=== PATIENT | female | born 1990 | race Caucasian/White ===

== ENCOUNTER 2017-07-21 00:01 | Emergency (ER) | payer MEDICAID, OTHER ==
[~2017-07-21] VITALS: Ht 154.9 cm; Wt 69.3 kg
[2017-07-21] MEDS ORDERED: ONDANSETRON HCL 4MG TABLET PO ONE (04:45)
[2017-07-21] MEDS ORDERED: KETOROLAC 30MG/ML VIAL IM ONE (04:45)
[2017-07-21] MEDS ORDERED: LIDOCAINE HCL 1% 20ML VIAL (Pyxis) INJ INFIL ONE (05:15)
[2017-07-21] MEDS ORDERED: CEFTRIAXONE SODIUM 1 G/VIAL IM ONE (05:15)
[2017-07-21] MEDS ORDERED: LIDOCAINE HCL 1%/EPI 1:200,000 30 ML VIAL MC ONE (05:15)
[2017-07-21] MEDS ORDERED: BACITRACIN ZINC OINT UDPKT TOP ONE (05:15)
[2017-07-21] MEDS ORDERED: TETANUS, DIPHTHERIA, PERTUSSIS VAC/PF 0.5ML (>7YR OLD) IM ONE (05:15)
[2017-07-21 07:30] VITALS: BP 132/80
== END 2017-07-21 07:42 | disposition home or self-care (01) ==
LOC: ER 00:01
DX: L02.01 Cutaneous abscess of face (principal); L03.211 Cellulitis of face; I10 Essential (primary) hypertension; F15.10 Other stimulant abuse, uncomplicated
CPT/HCPCS: 10061; 81025; 90471; 90715; 96372; 99284; J0696; J1885; J3490; Q0162; Z7610

== ENCOUNTER 2019-11-24 06:22 | Emergency (ER) | payer MEDICAID ==
[~2019-11-24] VITALS: Ht 157.5 cm; Wt 64.8 kg
[2019-11-24 06:51] VITALS: BP 125/87
== END 2019-11-24 07:41 | disposition left against medical advice (07) ==
LOC: ER 06:53
DX: Z53.21 Procedure and treatment not carried out due to patient leaving prior to being seen by health care provider (principal)

== ENCOUNTER 2020-08-08 01:29 | Emergency (ER) | payer MEDICAID ==
[~2020-08-08] VITALS: Ht 165.1 cm; Wt 77.0 kg
[2020-08-08 01:31] VITALS: BP 136/90
== END 2020-08-08 01:52 | disposition left against medical advice (07) ==
LOC: ER 01:29
DX: R10.9 Unspecified abdominal pain (principal); R11.2 Nausea with vomiting, unspecified; R68.89 Other general symptoms and signs; Z53.21 Procedure and treatment not carried out due to patient leaving prior to being seen by health care provider
CPT/HCPCS: 99283

== ENCOUNTER 2022-05-14 11:33 | Emergency (ER) | payer MEDICAID ==
[~2022-05-14] VITALS: Ht 165.1 cm; Wt 70.0 kg
[~2022-05-14 11:33] MED LIST: L25 MT; LEVO500T90 MT; THIA100T72 PO
[2022-05-14 11:39] VITALS: BP 118/82
[2022-05-14] MEDS ORDERED: IBUPROFEN 600MG TABLET PO ONE (12:15)
== END 2022-05-14 13:46 | disposition left against medical advice (07) ==
LOC: ER 11:36
DX: S09.8XXA Other specified injuries of head, initial encounter (principal); Y08.89XA Assault by other specified means, initial encounter; Y93.89 Activity, other specified; Y92.89 Other specified places as the place of occurrence of the external cause; Y99.8 Other external cause status; F10.229 Alcohol dependence with intoxication, unspecified; D64.9 Anemia, unspecified; F41.9 Anxiety disorder, unspecified; I10 Essential (primary) hypertension; Z87.19 Personal history of other diseases of the digestive system
CPT/HCPCS: 99281

== ENCOUNTER 2022-05-23 18:28 | Inpatient (IN) | payer MEDICAID, OTHER ==
[~2022-05-23] VITALS: Ht 154.9 cm; Wt 61.7 kg
[2022-05-23] MEDS ORDERED: ACETAMINOPHEN 325MG TABLET PO ONE (19:15)
[2022-05-23] MEDS ORDERED: KETOROLAC 30MG/ML VIAL IM ONE (20:45)
[2022-05-23 20:58] LABS: BASOPHILS % 1.5 % (0.0-2.0); EOSINOPHILS % 1.3 % (0.0-5.0); HEMATOCRIT. 32.4 % (36.0-48.0); HEMOGLOBIN. 11.4 g/dL (12.0-16.0); LYMPHOCYTES % 19.6 % (20.0-50.0); MEAN CORPUSCULAR HEMOGLOBIN 34.6 pg (28.0-32.0); MEAN CORPUSCULAR VOLUME 98.1 fL (81.0-99.0); MEAN PLATELET VOLUME 7.6 fl (7.4-10.4); MONOCYTES % 12.1 % (2.0-8.0); NEUTROPHILS % 65.5 % (40.0-76.0); PLATELET 102 x1000/uL (130-400); RED CELL DISTRIBUTION WIDTH 13.8 % (11.6-14.6)
[2022-05-23 21:14] LABS: CHLORIDE 103 mEq/L (98-107)
[2022-05-23 21:15] LABS: HCG SCREEN NEGATIVE
[2022-05-24] MEDS ORDERED: SODIUM CHLORIDE 0.9% 1,000 ML IV ONE (01:00)
[2022-05-24] MEDS: [UNRECOGNIZED DRUG - OTHER] IV SCH ×3 (03:22→21:10)
[2022-05-24 03:40] VITALS: BP 117/79
[2022-05-24] MEDS ORDERED: POTASSIUM CHLORIDE 20MEQ TABLET SR PO NR ×2 (04:30→10:30)
[2022-05-24] MEDS ORDERED: HYDROCODONE/ACETAMINOPHEN 10/325MG TABLET PO PRN (04:30)
[2022-05-24] MEDS: HYDROCODONE/ACETAMINOPHEN 10/325MG TABLET PO PRN ×2 (05:17→09:42)
[2022-05-24 08:00] VITALS: BP 128/68
[2022-05-24 09:36] LABS: BASOPHILS % 1.7 % (0.0-2.0); EOSINOPHILS % 1.8 % (0.0-5.0); LYMPHOCYTES % 12.2 % (20.0-50.0); MEAN CORPUSCULAR HEMOGLOBIN 34.9 pg (28.0-32.0); MEAN CORPUSCULAR VOLUME 98.4 fL (81.0-99.0); MEAN PLATELET VOLUME 7.2 fl (7.4-10.4); MONOCYTES % 13.1 % (2.0-8.0); NEUTROPHILS % 71.2 % (40.0-76.0); PLATELET 79 x1000/uL (130-400); RED BLOOD CELL COUNT 3.15 mill/uL (4.2-5.4); RED CELL DISTRIBUTION WIDTH 13.9 % (11.6-14.6)
[2022-05-24 09:52] LABS: CHLORIDE 105 mEq/L (98-107)
[2022-05-24] MEDS ORDERED: POTASSIUM CHLORIDE INJ 40 MEQ in DEXT 5% WATER 250 ML IV ONE (10:30)
[2022-05-24] MEDS: LORAZEPAM 2MG/ML CPJ IV PRN ×2 (11:58→21:10)
[2022-05-24 12:00] VITALS: BP_SYST 127; BP_SYST 131; BP_DIAS 76; BP_DIAS 81
[2022-05-24] MEDS: KCL 20MEQ/100ML X 2 FOR TOTAL KCL 40MEQ/200ML IV SCH ×2 (12:00→14:00)
[2022-05-24] MEDS: CHLORDIAZEPOXIDE 25MG CAPSULE PO SCH ×2 (13:08→18:00)
[2022-05-24] MEDS ORDERED: MAGNESIUM 4 G PREMIX 100 ML IV SCH (14:00)
[2022-05-24] MEDS ORDERED: ONDANSETRON HCL 4MG/2ML INJ IV PRN (14:45)
[2022-05-24 16:00] VITALS: BP 119/75
[2022-05-24] MEDS: DEXT 5%/0.45% NACL KCL 20MEQ/L 1,000 ML IV SCH (16:49)
[2022-05-24] MEDS ORDERED: CHLORDIAZEPOXIDE 25MG CAPSULE PO SCH (18:00)
[2022-05-24 20:00] VITALS: BP 132/87
[2022-05-24] MEDS ORDERED: NALOXONE HCL 0.4MG/ML VIAL IV PRN (20:00)
[2022-05-24 23:29] LABS: CLARITY URINE CLOUDY (CLEAR); COLOR URINE ORANGE (YELLOW); KETONES URINE 1+ (NEGATIVE); LEUKOCYTE ESTERASE URINE 1+ (NEGATIVE); NITRITE URINE POSITIVE (NEGATIVE); OCCULT BLOOD URINE 3+ (NEGATIVE); PROTEIN URINE 3+ (NEGATIVE); SPECIFIC GRAVITY URINE 1.014 (1.005-1.030)
[2022-05-24 23:46] LABS: *AMPHETAMINES SCREEN URINE NEGATIVE (NEGATIVE); *BARBITURATES SCREEN URINE NEGATIVE (NEGATIVE); *BENZODIAZEPINES SCREEN URINE NEGATIVE (NEGATIVE); *COCAINE SCREEN URINE NEGATIVE (NEGATIVE); CANNABINOID URINE SCREEN NEGATIVE (NEGATIVE); METHADONE URINE SCREEN NEGATIVE (NEGATIVE); PHENCYCLIDINE URINE SCREEN NEGATIVE (NEGATIVE)
[2022-05-24 23:51] VITALS: BP 142/96
[2022-05-24 23:51] LABS: OPIATES URINE SCREEN PRESUMTIVE POSITIVE (NEGATIVE)
[2022-05-25] MEDS: DEXT 5%/0.45% NACL KCL 20MEQ/L 1,000 ML IV SCH ×3 (00:45→20:45)
[2022-05-25 04:00] VITALS: BP 129/78
[2022-05-25] MEDS: CHLORDIAZEPOXIDE 25MG CAPSULE PO SCH ×2 (05:33→17:17)
[2022-05-25 08:00] VITALS: BP 145/98
[2022-05-25 08:24] LABS: HEMATOCRIT. 32.3 % (36.0-48.0); HEMOGLOBIN. 11.4 g/dL (12.0-16.0); MEAN CORPUSCULAR HEMOGLOBIN 34.7 pg (28.0-32.0); MEAN CORPUSCULAR VOLUME 98.5 fL (81.0-99.0); MEAN PLATELET VOLUME 7.9 fl (7.4-10.4); PLATELET 80 x1000/uL (130-400); RED BLOOD CELL COUNT 3.28 mill/uL (4.2-5.4); RED CELL DISTRIBUTION WIDTH 13.7 % (11.6-14.6)
[2022-05-25 08:32] LABS: CHLORIDE 96 mEq/L (98-107)
[2022-05-25] MEDS ORDERED: POTASSIUM CHLORIDE 20MEQ TABLET SR PO NR (10:00)
[2022-05-25 10:46] LABS: PLATELET ESTIMATE DECREASED
[2022-05-25] MEDS: MAGNESIUM OXIDE 400MG TABLET PO SCH (11:45)
[2022-05-25] MEDS: CEFTRIAXONE 1,000 MG in DEXTROSE 5% WATER 50 ML IV SCH (11:51)
[2022-05-25 12:00] VITALS: BP 132/93
[2022-05-25 16:00] VITALS: BP 138/93
[2022-05-25 20:00] VITALS: BP 124/75
[2022-05-26 04:00] VITALS: BP 141/88
[2022-05-26] MEDS: DEXT 5%/0.45% NACL KCL 20MEQ/L 1,000 ML IV SCH ×2 (05:15→16:16)
[2022-05-26] MEDS: CHLORDIAZEPOXIDE 25MG CAPSULE PO SCH ×3 (05:15→21:03)
[2022-05-26 08:00] VITALS: BP 143/101
[2022-05-26] MEDS ORDERED: CHLORDIAZEPOXIDE 25MG CAPSULE PO NR (08:30)
[2022-05-26] MEDS: MAGNESIUM OXIDE 400MG TABLET PO SCH (09:11)
[2022-05-26] MEDS ORDERED: LORAZEPAM 1MG TABLET PO NR (09:15)
[2022-05-26] MEDS: CEFTRIAXONE 1,000 MG in DEXTROSE 5% WATER 50 ML IV SCH (10:11)
[2022-05-26 12:00] VITALS: BP 141/103
[2022-05-26] MEDS: LORAZEPAM 2MG/ML CPJ IV PRN ×2 (13:39→23:14)
[2022-05-26 16:00] VITALS: BP 142/102
[2022-05-26] MEDS: LACTULOSE 20G/30ML UDC PO SCH ×2 (17:20→21:03)
[2022-05-26 20:00] VITALS: BP 145/99
[2022-05-26 20:46] LABS: CHLORIDE 98 mEq/L (98-107)
[2022-05-26 22:01] LABS: HEMATOCRIT. 31.5 % (36.0-48.0); MEAN CORPUSCULAR HEMOGLOBIN 34.9 pg (28.0-32.0); MEAN CORPUSCULAR VOLUME 100.6 fL (81.0-99.0); MEAN PLATELET VOLUME 8.5 fl (7.4-10.4); PLATELET 112 x1000/uL (130-400); RED BLOOD CELL COUNT 3.14 mill/uL (4.2-5.4)
[2022-05-26 22:41] LABS: PLATELET ESTIMATE DECREASED
[2022-05-27] VITALS: BP 140/98
[2022-05-27] MEDS: DEXT 5%/0.45% NACL KCL 20MEQ/L 1,000 ML IV SCH ×2 (02:45→13:23)
[2022-05-27] MEDS ORDERED: LORAZEPAM 2MG/ML CPJ IV NR (03:00)
[2022-05-27] MEDS ORDERED: HALOPERIDOL LACTATE 5MG/ML VIAL IM PRN (03:15)
[2022-05-27 04:00] VITALS: BP 148/97
[2022-05-27] MEDS: LACTULOSE 20G/30ML UDC PO SCH ×3 (06:00→21:51)
[2022-05-27 08:00] VITALS: BP 122/84
[2022-05-27] MEDS ORDERED: POTASSIUM CHLORIDE 20MEQ TABLET SR PO NR (10:30)
[2022-05-27 12:00] VITALS: BP 115/81
[2022-05-27] MEDS: CEFTRIAXONE 1,000 MG in DEXTROSE 5% WATER 50 ML IV SCH (13:23)
[2022-05-27] MEDS: MAGNESIUM OXIDE 400MG TABLET PO SCH (14:13)
[2022-05-27] MEDS: CHLORDIAZEPOXIDE 25MG CAPSULE PO SCH ×4 (14:13→21:01)
[2022-05-27] MEDS: FOLIC ACID 1MG TABLET PO SCH (14:14)
[2022-05-27] MEDS: THIAMINE HCL 100MG TABLET PO SCH (14:14)
[2022-05-27 16:00] VITALS: BP 123/84
[2022-05-27 20:00] VITALS: BP 131/88
[2022-05-28] VITALS: BP 131/90
[2022-05-28 04:00] VITALS: BP 138/96
[2022-05-28] MEDS: LACTULOSE 20G/30ML UDC PO SCH ×3 (05:44→21:38)
[2022-05-28] MEDS: DEXT 5%/0.45% NACL KCL 20MEQ/L 1,000 ML IV SCH ×3 (05:45→18:45)
[2022-05-28 08:00] VITALS: BP 125/80
[2022-05-28] MEDS: THIAMINE HCL 100MG TABLET PO SCH (09:17)
[2022-05-28] MEDS: CHLORDIAZEPOXIDE 25MG CAPSULE PO SCH ×4 (09:17→21:38)
[2022-05-28] MEDS: MAGNESIUM OXIDE 400MG TABLET PO SCH (09:17)
[2022-05-28] MEDS: FOLIC ACID 1MG TABLET PO SCH (09:17)
[2022-05-28 09:54] LABS: BASOPHILS % 0.7 % (0.0-2.0); EOSINOPHILS % 2.6 % (0.0-5.0); HEMATOCRIT. 30.2 % (36.0-48.0); HEMOGLOBIN. 10.3 g/dL (12.0-16.0); LYMPHOCYTES % 11.5 % (20.0-50.0); MEAN CORPUSCULAR HEMOGLOBIN 35.4 pg (28.0-32.0); MEAN CORPUSCULAR VOLUME 103.7 fL (81.0-99.0); MEAN PLATELET VOLUME 8.2 fl (7.4-10.4); MONOCYTES % 14.5 % (2.0-8.0); NEUTROPHILS % 70.7 % (40.0-76.0); PLATELET 157 x1000/uL (130-400); RED BLOOD CELL COUNT 2.92 mill/uL (4.2-5.4); RED CELL DISTRIBUTION WIDTH 13.4 % (11.6-14.6)
[2022-05-28 11:08] LABS: CHLORIDE 104 mEq/L (98-107)
[2022-05-28 12:00] VITALS: BP 128/79
[2022-05-28] MEDS: CEFTRIAXONE 1,000 MG in DEXTROSE 5% WATER 50 ML IV SCH (14:25)
[2022-05-28 16:00] VITALS: BP 134/89
[2022-05-28 20:00] VITALS: BP 121/78
[2022-05-28] MEDS ORDERED: POTASSIUM CHLORIDE 20MEQ TABLET SR PO NR (20:45)
[2022-05-29] VITALS: BP 122/78
[2022-05-29 04:00] VITALS: BP 119/80
[2022-05-29] MEDS: DEXT 5%/0.45% NACL KCL 20MEQ/L 1,000 ML IV SCH ×2 (04:00→14:37)
[2022-05-29] MEDS: LACTULOSE 20G/30ML UDC PO SCH ×4 (05:12→21:25)
[2022-05-29] MEDS: LORAZEPAM 2MG/ML CPJ IV PRN (06:51)
[2022-05-29 08:00] VITALS: BP 114/73
[2022-05-29] MEDS: THIAMINE HCL 100MG TABLET PO SCH (08:16)
[2022-05-29] MEDS: MAGNESIUM OXIDE 400MG TABLET PO SCH (08:16)
[2022-05-29] MEDS: FOLIC ACID 1MG TABLET PO SCH (08:16)
[2022-05-29] MEDS: CHLORDIAZEPOXIDE 25MG CAPSULE PO SCH ×4 (08:16→20:21)
[2022-05-29] MEDS: CEFTRIAXONE 1,000 MG in DEXTROSE 5% WATER 50 ML IV SCH (10:57)
[2022-05-29 12:00] VITALS: BP 113/69
[2022-05-29 16:00] VITALS: BP 123/75
[2022-05-29 20:00] VITALS: BP 124/80
[2022-05-30] VITALS: BP 130/85
[2022-05-30] MEDS: DEXT 5%/0.45% NACL KCL 20MEQ/L 1,000 ML IV SCH ×3 (01:03→20:45)
[2022-05-30 03:58] VITALS: BP 110/74
[2022-05-30] MEDS: LACTULOSE 20G/30ML UDC PO SCH ×3 (06:33→21:19)
[2022-05-30 08:01] VITALS: BP 129/75
[2022-05-30] MEDS: CHLORDIAZEPOXIDE 25MG CAPSULE PO SCH ×4 (08:59→21:19)
[2022-05-30] MEDS: THIAMINE HCL 100MG TABLET PO SCH (09:00)
[2022-05-30] MEDS: MAGNESIUM OXIDE 400MG TABLET PO SCH (09:00)
[2022-05-30] MEDS: FOLIC ACID 1MG TABLET PO SCH (09:00)
[2022-05-30] MEDS: CEFTRIAXONE 1,000 MG in DEXTROSE 5% WATER 50 ML IV SCH (10:39)
[2022-05-30 11:49] VITALS: BP 117/76
[2022-05-30 16:00] VITALS: BP 125/73
[2022-05-30 20:00] VITALS: BP 121/70
[2022-05-30 20:10] LABS: HEMATOCRIT. 30.3 % (36.0-48.0); HEMOGLOBIN. 10.3 g/dL (12.0-16.0); MEAN CORPUSCULAR HEMOGLOBIN 34.9 pg (28.0-32.0); MEAN CORPUSCULAR VOLUME 102.7 fL (81.0-99.0); MEAN PLATELET VOLUME 7.6 fl (7.4-10.4); PLATELET 393 x1000/uL (130-400); RED BLOOD CELL COUNT 2.95 mill/uL (4.2-5.4); RED CELL DISTRIBUTION WIDTH 13.2 % (11.6-14.6)
[2022-05-30 20:26] LABS: CHLORIDE 99 mEq/L (98-107)
[2022-05-30 20:42] LABS: PLATELET ESTIMATE NORMAL
[2022-05-31 00:06] VITALS: BP 124/74
[2022-05-31 03:59] VITALS: BP 131/78
[2022-05-31] MEDS: LACTULOSE 20G/30ML UDC PO SCH ×2 (06:10→14:00)
[2022-05-31] MEDS: DEXT 5%/0.45% NACL KCL 20MEQ/L 1,000 ML IV SCH ×2 (06:11→16:45)
[2022-05-31 07:53] VITALS: BP 125/76
[2022-05-31] MEDS: THIAMINE HCL 100MG TABLET PO SCH ×2 (08:49→08:53)
[2022-05-31] MEDS: FOLIC ACID 1MG TABLET PO SCH ×2 (08:49→08:53)
[2022-05-31] MEDS: MAGNESIUM OXIDE 400MG TABLET PO SCH ×2 (08:49→08:53)
[2022-05-31] MEDS: CHLORDIAZEPOXIDE 25MG CAPSULE PO SCH ×3 (08:49→17:02)
[2022-05-31 12:03] VITALS: BP 110/55
[2022-05-31 16:00] VITALS: BP 115/68
[2022-05-31 20:00] VITALS: BP 91/59
[2022-06-01] VITALS: BP 120/67
[2022-06-01] MEDS: DEXT 5%/0.45% NACL KCL 20MEQ/L 1,000 ML IV SCH ×3 (02:38→21:02)
[2022-06-01 04:00] VITALS: BP 101/55
[2022-06-01 08:00] VITALS: BP 115/66
[2022-06-01] MEDS: LACTULOSE 20G/30ML UDC PO SCH (08:57)
[2022-06-01] MEDS: MAGNESIUM OXIDE 400MG TABLET PO SCH (08:58)
[2022-06-01] MEDS: THIAMINE HCL 100MG TABLET PO SCH (08:58)
[2022-06-01] MEDS: FOLIC ACID 1MG TABLET PO SCH (08:58)
[2022-06-01 12:00] VITALS: BP 109/51
[2022-06-01] MEDS: SERTRALINE HCL 50MG TABLET PO SCH (13:03)
[2022-06-01 16:00] VITALS: BP 102/58
[2022-06-01 20:39] VITALS: BP 105/64
[2022-06-01] MEDS ORDERED: TRAZODONE HCL 50MG TABLET PO SCH (21:00)
[2022-06-02 01:42] VITALS: BP 121/58
[2022-06-02 04:23] VITALS: BP 146/68
[2022-06-02 07:23] VITALS: BP 114/73
[2022-06-02 08:00] VITALS: BP 114/73
[2022-06-02] MEDS: FOLIC ACID 1MG TABLET PO SCH (08:10)
[2022-06-02] MEDS: SERTRALINE HCL 50MG TABLET PO SCH (08:11)
[2022-06-02] MEDS: THIAMINE HCL 100MG TABLET PO SCH (08:11)
[2022-06-02] MEDS: DEXT 5%/0.45% NACL KCL 20MEQ/L 1,000 ML IV SCH (08:11)
[2022-06-02] MEDS: MAGNESIUM OXIDE 400MG TABLET PO SCH (08:11)
[2022-06-02] MEDS: LACTULOSE 20G/30ML UDC PO SCH (08:12)
== END 2022-06-02 09:45 | DRG 775 ==
LOC: ER 18:28 → 6WST 05-24 00:07 → ENRESERV 05-24 02:38 → 6EST 06-01 14:06
PROVIDERS: ADMIT Internal Medicine; ATTEND Internal Medicine
DX: F10.129 Alcohol abuse with intoxication, unspecified (principal); E44.1 Mild protein-calorie malnutrition; K76.0 Fatty (change of) liver, not elsewhere classified; F43.10 Post-traumatic stress disorder, unspecified; E87.6 Hypokalemia; E83.42 Hypomagnesemia; F33.2 Major depressive disorder, recurrent severe without psychotic features; D64.9 Anemia, unspecified; I10 Essential (primary) hypertension; N13.2 Hydronephrosis with renal and ureteral calculous obstruction; N13.9 Obstructive and reflux uropathy, unspecified; R74.01 Elevation of levels of liver transaminase levels; Y90.9 Presence of alcohol in blood, level not specified; Z20.822 Contact with and (suspected) exposure to COVID-19; Z79.899 Other long term (current) drug therapy; Z91.410 Personal history of adult physical and sexual abuse; K80.20 Calculus of gallbladder without cholecystitis without obstruction; N26.1 Atrophy of kidney (terminal)
CPT/HCPCS: 36415; 74176; 76705; 80048; 80053; 80305; 81003; 82140; 83735; 84132; 84702; 84703; 85025; 87426; 93005; 99285; A6261; J0696; J1630; J1885; J2060; J2405; J3475; J3480; J7030; J7060

== ENCOUNTER 2022-08-03 06:15 | Emergency (ER) | payer MEDICAID ==
[~2022-08-03] VITALS: Ht 152.4 cm; Wt 68.0 kg
[2022-08-03] MEDS ORDERED: TOPUD PO (06:26)
[2022-08-03] MEDS ORDERED: ACETAMINOPHEN 325MG TABLET PO ONE (06:30)
[2022-08-03 06:40] VITALS: BP 132/65
== END 2022-08-03 06:45 | disposition home or self-care (01) ==
LOC: ER 06:15
DX: M54.9 Dorsalgia, unspecified (principal); R51.9 Headache, unspecified; I10 Essential (primary) hypertension; F41.9 Anxiety disorder, unspecified; D64.9 Anemia, unspecified
CPT/HCPCS: 99283

== ENCOUNTER 2022-12-27 10:41 | Emergency (ER) | payer MEDICAID ==
[~2022-12-27] VITALS: Ht 165.1 cm; Wt 59.0 kg
[~2022-12-27 10:41] MED LIST changes: -L25 MT; -LEVO500T90 MT; -THIA100T72 PO; +TOPUD PO
[2022-12-27 12:06] LABS: BASOPHILS % 2.4 % (0.0-2.0); EOSINOPHILS % 2.9 % (0.0-5.0); HEMATOCRIT. 37.6 % (36.0-48.0); HEMOGLOBIN. 13.3 g/dL (12.0-16.0); LYMPHOCYTES % 34.9 % (20.0-50.0); MEAN CORPUSCULAR HEMOGLOBIN 34.4 pg (28.0-32.0); MEAN CORPUSCULAR VOLUME 96.9 fL (81.0-99.0); MEAN PLATELET VOLUME 7.1 fl (7.4-10.4); MONOCYTES % 14.6 % (2.0-8.0); NEUTROPHILS % 45.2 % (40.0-76.0); PLATELET 133 x1000/uL (130-400); RED BLOOD CELL COUNT 3.88 mill/uL (4.2-5.4); RED CELL DISTRIBUTION WIDTH 16.7 % (11.6-14.6)
[2022-12-27 12:07] LABS: CHLORIDE 104 mEq/L (98-107)
[2022-12-27] MEDS ORDERED: KCL 20MEQ/100ML PREMIX 100 ML IV ONE (12:30)
[2022-12-27] MEDS ORDERED: POTASSIUM CHLORIDE 20MEQ TABLET SR PO ONE (12:30)
[2022-12-27] MEDS ORDERED: SODIUM CHLORIDE 0.9% 1,000 ML IV ONE (12:30)
[2022-12-27 12:45] LABS: HCG SCREEN NEGATIVE
[2022-12-27 14:18] LABS: ETHANOL BLOOD 509 mg/dL
[2022-12-27] MEDS ORDERED: POTA-79 MT (14:52)
[2022-12-27] MEDS ORDERED: POTASSIUM CHLORIDE 20MEQ TABLET SR PO NR (15:15)
[2022-12-27 16:26] VITALS: BP 139/94
== END 2022-12-27 18:22 | disposition home or self-care (01) ==
LOC: ER 10:41
DX: R41.82 Altered mental status, unspecified (principal); E87.6 Hypokalemia; F10.229 Alcohol dependence with intoxication, unspecified; Y90.8 Blood alcohol level of 240 mg/100 ml or more; D64.9 Anemia, unspecified; F41.9 Anxiety disorder, unspecified; I10 Essential (primary) hypertension
CPT/HCPCS: 36415; 70450; 73560; 80053; 80320; 82962; 84703; 85025; 93005; 96365; 99285; C1893; J3480; J7030; Z7610; G0480

== ENCOUNTER 2023-02-01 07:50 | Emergency (ER) | payer MEDICAID ==
[~2023-02-01] VITALS: Ht 154.9 cm; Wt 69.0 kg
[~2023-02-01 07:50] MED LIST changes: +POTA-79 MT
[2023-02-01] MEDS ORDERED: OXYCODONE HCL/ACETAMINOPHEN 5/325MG TABLET PO ONE (08:00)
[2023-02-01 08:22] VITALS: BP 119/50
[2023-02-01] MEDS ORDERED: IBUP-2028 PO (09:22)
[2023-02-01] MEDS ORDERED: OXYC-100 MT (09:22)
== END 2023-02-01 09:44 | disposition home or self-care (01) ==
LOC: ER 07:50
DX: S42.301A Unspecified fracture of shaft of humerus, right arm, initial encounter for closed fracture (principal); I10 Essential (primary) hypertension; W01.0XXA Fall on same level from slipping, tripping and stumbling without subsequent striking against object, initial encounter; Y93.89 Activity, other specified; Y92.89 Other specified places as the place of occurrence of the external cause; Y99.8 Other external cause status
CPT/HCPCS: 73030; 73060; 99284; A4565

== ENCOUNTER 2023-12-22 18:39 | Emergency (ER) | payer MEDICAID ==
[~2023-12-22] VITALS: Ht 154.9 cm; Wt 77.1 kg
[~2023-12-22 18:39] MED LIST changes: +IBUP-2028 PO; +OXYC-100 MT; +POTA-354 MT; -POTA-79 MT
[2023-12-22 18:58] VITALS: TEMP 98.1; O2SAT 99
[2023-12-22 20:15] VITALS: BP 142/85; PULSE 70; RESP 16
[2023-12-22] MEDS ORDERED: KETOROLAC 60MG/2ML VIAL IM ONE (20:15)
[2023-12-22] MEDS: ONDANSETRON 4MG ODT PO NR (20:15)
[2023-12-22] MEDS ORDERED: ONDANSETRON 4MG ODT PO ONE (20:15)
[2023-12-22] MEDS: KETOROLAC 60MG/2ML VIAL IM NR (20:15)
== END 2023-12-23 00:46 | disposition home or self-care (01) ==
LOC: ER 18:39
DX: B34.9 Viral infection, unspecified (principal); F10.20 Alcohol dependence, uncomplicated; D64.9 Anemia, unspecified; F41.9 Anxiety disorder, unspecified; I10 Essential (primary) hypertension; Z87.19 Personal history of other diseases of the digestive system; Z79.899 Other long term (current) drug therapy
CPT/HCPCS: 99283; 71045; Q0162; J1885

== ENCOUNTER 2024-07-05 23:01 | Emergency (ER) | payer OTHER ==
[~2024-07-05] VITALS: Ht 152.4 cm; Wt 68.0 kg
[~2024-07-05 23:01] MED LIST changes: +CHLO25CA10 MT; -IBUP-2028 PO; -POTA-354 MT
[2024-07-05 23:03] VITALS: O2SAT 97
[2024-07-05] MEDS ORDERED: KETOROLAC 30MG/ML VIAL IV STA (23:14)
[2024-07-05] MEDS ORDERED: ONDANSETRON HCL 4MG/2ML INJ IV STA (23:14)
[2024-07-05 23:47] LABS: BASOPHILS % 0.6 % (0.0-2.0); CHLORIDE 105 mEq/L (98-107); EOSINOPHILS % 1.8 % (0.0-5.0); HEMATOCRIT. 38.3 % (36.0-48.0); LYMPHOCYTES % 34.5 % (20.0-50.0); MEAN CORPUSCULAR HGB CONC 33.9 g/dL (31.0-37.0); MEAN CORPUSCULAR VOLUME 88.6 fL (81.0-99.0); MEAN PLATELET VOLUME 8.1 fl (7.4-10.4); MONOCYTES % 10.3 % (2.0-8.0); NEUTROPHILS % 52.8 % (40.0-76.0); PLATELET 218 x1000/uL (130-400); POTASSIUM 3.2 mEq/L (3.5-5.1); RED BLOOD CELL COUNT 4.32 mill/uL (4.2-5.4); RED CELL DISTRIBUTION WIDTH 16.8 % (11.6-14.6); SODIUM 140 mEq/L (136-145); WHITE BLOOD COUNT 6.5 x1000/uL (4.5-11.0)
[2024-07-05 23:48] LABS: CALCIUM 9.4 mg/dL (8.7-10.4); CARBON DIOXIDE 21 mEq/L (21-32)
[2024-07-05 23:53] LABS: CREATININE 0.8 mg/dL (0.6-1.0); GLUCOSE 135 mg/dL (70-105); UREA NITROGEN BLOOD 12 mg/dL (9-23)
[2024-07-05 23:55] LABS: ALANINE AMINOTRANSFERASE 70 IU/L (10-49); ALBUMIN 4.7 g/dL (3.2-4.8); ASPARTATE AMINOTRANSFERASE 85 IU/L (<34); BILIRUBIN DIRECT 0.2 mg/dL (<=3.0); BILIRUBIN TOTAL 0.7 mg/dL (0.1-1.0); PROTEIN TOTAL 8.3 g/dL (6.0-8.3)
[2024-07-06 00:01] LABS: HCG SCREEN NEGATIVE
[2024-07-06] MEDS: SODIUM CHLORIDE 0.9% 1,000 ML IV ONE (01:30)
[2024-07-06] MEDS: ONDANSETRON HCL 4MG/2ML INJ IV NR (01:36)
[2024-07-06] MEDS: KETOROLAC 30MG/ML VIAL IV NR (01:36)
[2024-07-06 04:16] LABS: CLARITY URINE TURBID (CLEAR); COLOR URINE DARK YELLOW (YELLOW); GLUCOSE URINE NEGATIVE (NEGATIVE); KETONES URINE 1+ (NEGATIVE); LEUKOCYTE ESTERASE URINE 2+ (NEGATIVE); NITRITE URINE NEGATIVE (NEGATIVE); OCCULT BLOOD URINE 2+ (NEGATIVE); PH URINE 6.5 (4.5-8.0); PROTEIN URINE 4+ (NEGATIVE); SPECIFIC GRAVITY URINE 1.023 (1.005-1.030)
[2024-07-06 04:47] LABS: WBC URINE 15-25 /hpf (0-2)
[2024-07-06 04:48] LABS: RBC URINE 0-2 /hpf (0-2)
[2024-07-06 04:49] LABS: SQUAMOUS EPITHELIAL CELL URINE NONE SEEN /lpf (RARE/1+)
[2024-07-06 04:50] LABS: BACTERIA URINE 4+
[2024-07-06] MEDS ORDERED: CEFTRIAXONE 1GM/50ML 50 ML IV ONE (05:15)
[2024-07-06] MEDS: CEFTRIAXONE 1GM/50ML 50 ML IV NR (05:27)
[2024-07-06 05:53] LABS: LACTIC ACID 3.1 mmol/L (0.4-2.0)
[2024-07-06 09:42] VITALS: TEMP 36.89184; O2SAT 97
[2024-07-06 09:53] VITALS: BP 128/82; PULSE 84; RESP 17; TEMP 98.4
== END 2024-07-06 11:10 | disposition short-term general hospital (02) ==
LOC: ER 23:16 → EDBEDREQ 07-06 06:17 → CANBEDREQ 07-06 11:00 → ER 07-06 11:10
DX: N13.6 Pyonephrosis (principal); F10.29 Alcohol dependence with unspecified alcohol-induced disorder; I10 Essential (primary) hypertension; F41.9 Anxiety disorder, unspecified; Z59.00 Homelessness unspecified; Y90.9 Presence of alcohol in blood, level not specified
CPT/HCPCS: 80076; 80048; 84703; 83690; 85025; 36415 ×2; 99291; 81003; 83605; 87040; 87086; 87186; 87077; 84145; 74176; 96361; 96365; 96375; J7030; J0696; J1885; J2405; Z7610 ×2

== ENCOUNTER 2025-03-13 00:56 | Emergency (ER) | payer MEDICAID, OTHER ==
[~2025-03-13] VITALS: Ht 154.9 cm; Wt 74.0 kg
[2025-03-13 00:59] VITALS: BP 128/75; PULSE 63; RESP 20; TEMP 37.1; O2SAT 99
== END 2025-03-13 02:14 | disposition left against medical advice (07) ==
LOC: ER 00:56
DX: U07.1 COVID-19 (principal); F15.10 Other stimulant abuse, uncomplicated; I10 Essential (primary) hypertension; F41.9 Anxiety disorder, unspecified; Z87.440 Personal history of urinary (tract) infections
CPT/HCPCS: 99283